=== PATIENT | male | born 1970 | race Two or more races ===

== ENCOUNTER 2017-05-15 10:25 | Outpatient (CLI) | payer OTHER ==
[2017-05-15 10:51] LABS: BASOPHILS # (AUTO) 0.2 K/uL (0.00-0.22); BASOPHILS % (AUTO) 3.1 % (0.0-2.0); EOSINOPHILS # (AUTO) 0.1 K/uL (0-0.4); EOSINOPHILS % (AUTO) 2.7 % (0.0-4.0); HEMATOCRIT 44.2 % (36-52); HEMOGLOBIN 14.6 g/dL (12.0-18.0); LYMPHOCYTES # (AUTO) 1.9 K/uL (2.0-11.5); LYMPHOCYTES % (AUTO) 35.3 % (20.5-51.1); MEAN CORPUSCULAR HEMOGLOBIN 28 pg (27-31); MEAN CORPUSCULAR HGB CONC 33 g/dL (33-37); MEAN CORPUSCULAR VOLUME 85 fL (80-94); MONOCYTES # (AUTO) 0.4 K/uL (0.8-1.0); MONOCYTES % (AUTO) 8.2 % (1.7-9.3); NEUTROPHILS # (AUTO) 2.8 K/uL (1.8-7.7); NEUTROPHILS % (AUTO) 50.7 % (42.2-75.2); PLATELET COUNT (AUTO) 250 K/uL (140-450); RED BLOOD CELL COUNT(AUTO) 5.22 MIL/uL (4.20-6.10); RED CELL DISTRIBUTION WIDTH 11.9 % (11.6-13.7); WHITE BLOOD COUNT (AUTO) 5.4 K/uL (4.8-10.8)
[2017-05-15 11:20] LABS: ALBUMIN 3.9 g/dL (3.4-5.0); CARBON DIOXIDE 30.9 mmol/L (21-32); CHOL/HDL RATIO 3.2 (1-4.5); CREATININE 0.9 mg/dL (0.7-1.3); POTASSIUM 3.9 mmol/L (3.5-5.1); TOTAL BILIRUBIN 0.9 mg/dL (0.0-1.0)
== END 2017-05-15 20:56 | disposition home or self-care (01) ==
LOC: MLB 10:25
PROVIDERS: ATTEND Student in an Organized Health Care Education/Training Program
DX: Z00.00 Encounter for general adult medical examination without abnormal findings (principal)
CPT/HCPCS: 36415; 80053; 85025

== ENCOUNTER 2018-11-23 12:17 | Outpatient (CLI) | payer OTHER ==
[2018-11-23 12:50] LABS: BASOPHILS % (AUTO) 0.7 % (0.0-2.0); EOSINOPHILS # (AUTO) 0.2 K/uL (0-0.4); EOSINOPHILS % (AUTO) 3.6 % (0.0-4.0); HEMOGLOBIN 14.6 g/dL (12.0-18.0); LYMPHOCYTES # (AUTO) 1.9 K/uL (2.0-11.5); LYMPHOCYTES % (AUTO) 36.9 % (20.5-51.1); MEAN CORPUSCULAR HEMOGLOBIN 28 pg (27-31); MEAN CORPUSCULAR HGB CONC 33 g/dL (33-37); MEAN CORPUSCULAR VOLUME 85.5 fL (80-94); MONOCYTES # (AUTO) 0.5 K/uL (0.8-1.0); MONOCYTES % (AUTO) 9.5 % (1.7-9.3); NEUTROPHILS # (AUTO) 2.6 K/uL (1.8-7.7); NEUTROPHILS % (AUTO) 49.3 % (42.2-75.2); PLATELET COUNT (AUTO) 250 K/uL (140-450); RED BLOOD CELL COUNT(AUTO) 5.14 MIL/uL (4.20-6.10); RED CELL DISTRIBUTION WIDTH 13.2 % (11.6-13.7); WHITE BLOOD COUNT (AUTO) 5.2 K/uL (4.8-10.8)
[2018-11-23 13:09] LABS: APPEARANCE,URINE CLEAR (CLEAR); BILIRUBIN,URINE NEGATIVE (NEGATIVE); BLOOD, URINE NEGATIVE (NEGATIVE); COLOR,URINE YELLOW (YELLOW); LEUKOCYTE ESTERASE ,URINE NEGATIVE (NEGATIVE); NITRITE, URINE NEGATIVE (NEGATIVE); PH,URINE 6.5 (5.0-9.0); UGLUCOSE TRACE (NEGATIVE)
[2018-11-23 13:12] LABS: ALBUMIN 4.1 g/dL (3.4-5.0); ANION GAP 11.3 (8-16); CARBON DIOXIDE 28.8 mmol/L (21-32); CHOL/HDL RATIO 3.2 (1-4.5); FREE T4 (FREE THYROXINE) 0.98 ng/dL (0.76-1.46); MAGNESIUM 2.1 mg/dL (1.8-2.4); POTASSIUM 5.1 mmol/L (3.5-5.1); THYROID STIMULATING HORMONE 1.35 uIU/mL (0.34-3.74); TOTAL BILIRUBIN 0.4 mg/dL (0.0-1.0)
== END 2018-11-23 21:12 | disposition home or self-care (01) ==
LOC: MLB 12:17
PROVIDERS: ATTEND Family Medicine
DX: Z00.01 Encounter for general adult medical examination with abnormal findings (principal)
CPT/HCPCS: 36415; 80053; 81003; 82306; 83036; 83735; 84439; 84443; 85025

== ENCOUNTER 2019-03-18 08:39 | Outpatient (CLI) | payer OTHER ==
[2019-03-18 09:05] LABS: BASOPHILS % (AUTO) 0.7 % (0.0-2.0); EOSINOPHILS # (AUTO) 0.3 K/uL (0-0.4); EOSINOPHILS % (AUTO) 4.9 % (0.0-4.0); HEMATOCRIT 44.7 % (36-52); HEMOGLOBIN 14.7 g/dL (12.0-18.0); LYMPHOCYTES # (AUTO) 1.8 K/uL (2.0-11.5); LYMPHOCYTES % (AUTO) 35.2 % (20.5-51.1); MEAN CORPUSCULAR HEMOGLOBIN 29 pg (27-31); MEAN CORPUSCULAR HGB CONC 33 g/dL (33-37); MEAN CORPUSCULAR VOLUME 87.7 fL (80-94); MONOCYTES # (AUTO) 0.5 K/uL (0.8-1.0); MONOCYTES % (AUTO) 9.2 % (1.7-9.3); NEUTROPHILS # (AUTO) 2.6 K/uL (1.8-7.7); PLATELET COUNT (AUTO) 244 K/uL (140-450); RED CELL DISTRIBUTION WIDTH 13.3 % (11.6-13.7); WHITE BLOOD COUNT (AUTO) 5.1 K/uL (4.8-10.8)
[2019-03-18 09:18] LABS: APPEARANCE,URINE CLEAR (CLEAR); BILIRUBIN,URINE NEGATIVE (NEGATIVE); BLOOD, URINE NEGATIVE (NEGATIVE); COLOR,URINE YELLOW (YELLOW); LEUKOCYTE ESTERASE ,URINE NEGATIVE (NEGATIVE); NITRITE, URINE NEGATIVE (NEGATIVE); UGLUCOSE NEGATIVE (NEGATIVE)
[2019-03-18 09:56] LABS: CREATININE 0.8 mg/dL (0.7-1.3); POTASSIUM 4.1 mmol/L (3.5-5.1)
[2019-03-18 10:15] LABS: ANION GAP 10.9 (8-16); CARBON DIOXIDE 31.2 mmol/L (21-32); CHOL/HDL RATIO 3.7 (1-4.5); TOTAL BILIRUBIN 0.5 mg/dL (0.0-1.0)
[2019-03-19 09:08] LABS: T4 FREE (DIRECT) 1.28 ng/dL (0.82-1.77); TRIIODOTHYRONINE 107 ng/dL (71-180); TRIIODOTHYRONINE FREE 3.1 pg/mL (2.0-4.4)
[2019-03-19 12:07] LABS: MICROALBUMIN, UR RANDOM <3.0 ug/mL (Not Estab.)
== END 2019-03-18 19:32 | disposition home or self-care (01) ==
LOC: MLB 08:39
PROVIDERS: ATTEND Family Medicine
DX: E78.2 Mixed hyperlipidemia (principal); E11.9 Type 2 diabetes mellitus without complications; E55.9 Vitamin D deficiency, unspecified
CPT/HCPCS: 36415; 80053; 81003; 82043; 82306; 83036; 84439; 84443; 84480; 84481; 85025

== ENCOUNTER 2019-07-07 20:09 | Emergency (ER) | payer OTHER ==
[~2019-07-07] VITALS: Ht 175.3 cm; Wt 99.3 kg
[2019-07-07 20:24] VITALS: BP 128/73
--- NOTE | 2019-07-07 20:27 | NUR ---
PT AMBULATED TO LOBBY WITH STEADY GAIT
--- NOTE | 2019-07-07 20:45 | NUR ---
INFLUENZA SWAB COLLECTED
--- NOTE | 2019-07-07 20:59 | NUR ---
PT TAKEN TO CHAIR B
--- NOTE | 2019-07-07 21:04 | NUR ---
48 Y/O MALE PRESENTS TO ED, C/O FEVER AND COUGHIN. PT STATES SYMPTOMS STARTED YESTERDAY AND WORSENING TODAY. PT STATES FEVER WAS 101 AT HOME; PT AFEBRILE DURING TRIAGE ASSESSMENT. TOOK TYLENOL 1 HOUR PRIOR COMING TO ED. COUGHING IS PRODUCTIVE WITH SPUTUM, PER PT. NO SOB/DIFFICULTY BREATHING NOTED. LUNG SOUNDS BILAT CLEAR. PT VSS. ERMD AWARE. WILL CONTINUE TO MONITOR.
--- NOTE | 2019-07-07 21:52 | NUR ---
PT MOVED TO BED #7
--- NOTE | 2019-07-07 22:59 | NUR ---
Dr. Sheriff examining patient.
[2019-07-07 23:21] VITALS: BP 131/70
--- NOTE | 2019-07-07 23:21 | NUR ---
PT DISCHARGED WITH PAPERWORK. EDUCATED PT REGARDING MEDICATIONS AND D/C INSTRUCTIONS. PT VERBALIZED UNDERSTANDING WITH TEACHING. TOLD PT TO FOLLOW UP WITH PCP AND WHEN TO RETURN TO ED. PT AT STABLE CONDITION. ALL QUESTIONS ANSWERED
== END 2019-07-07 23:21 | disposition home or self-care (01) ==
LOC: MED 20:09
DX: R50.9 Fever, unspecified (principal); R05 Cough; R06.02 Shortness of breath; R07.89 Other chest pain; R11.0 Nausea
CPT/HCPCS: 71045; 87804; 99284

== ENCOUNTER 2021-10-27 08:31 | Day surgery (SDC) | payer OTHER ==
[~2021-10-27] VITALS: Ht 172.7 cm; Wt 94.3 kg
[2021-10-27] MEDS ORDERED: fentaNYL citrate 0.05 MG/ML VIAL ONE (09:16)
[2021-10-27] MEDS ORDERED: diphenhydrAMINE 50 MG/ML VIAL ONE (09:16)
[2021-10-27] MEDS ORDERED: MIDAZOLAM 5 MG/5 ML VIAL ONE (09:16)
[2021-10-27] MEDS ORDERED: LIDOCAINE 2% 100 MG/5 ML UJET TP ONE (09:17)
== END 2021-10-27 10:50 | disposition home or self-care (01) ==
LOC: MOR 08:31 → MMU 08:32 → MOR 10:50
PROVIDERS: ATTEND Internal Medicine Gastroenterology
DX: Z12.11 Encounter for screening for malignant neoplasm of colon (principal); D12.4 Benign neoplasm of descending colon; K59.00 Constipation, unspecified; Z90.49 Acquired absence of other specified parts of digestive tract; Z79.899 Other long term (current) drug therapy; Z20.822 Contact with and (suspected) exposure to COVID-19
CPT/HCPCS: 45385; 87426; 88305; J1200; J2250; J3010

== ENCOUNTER 2023-09-18 02:50 | Emergency (ER) | payer OTHER ==
[~2023-09-18] VITALS: Ht 172.7 cm; Wt 97.5 kg
[2023-09-18 03:04] VITALS: BP 119/76; PULSE 91; RESP 18; TEMP 98.3; O2SAT 97
[2023-09-18 03:21] LABS: APPEARANCE,URINE CLOUDY (CLEAR); BILIRUBIN,URINE NEGATIVE (NEGATIVE); BLOOD, URINE 3+ (NEGATIVE); COLOR,URINE YELLOW (YELLOW); LEUKOCYTE ESTERASE ,URINE 2+ (NEGATIVE); NITRITE, URINE POSITIVE (NEGATIVE); PROTEIN,URINE 1+ (NEGATIVE); UGLUCOSE NEGATIVE (NEGATIVE); UROBILINOGEN,URINE 0.2 EU/dL (0.2 - 1)
[2023-09-18 03:32] LABS: BACTERIA,URINE >30 (MANY) /HPF (None Seen); MUCUS,URINE 1+ /LPF (None Seen); SQUAMOUS EPITHELIAL CELL,UR 0-3 (FEW) /LPF (0-3 (FEW)); WBC,URINE TOO MANY TO COUNT /HPF (0-5)
[2023-09-18] MEDS ORDERED: cefTRIAXone 1,000 MG VIAL ONE (05:03)
[2023-09-18] MEDS: KETOROLAC 30 MG/ML VIAL IVP ONE (05:28)
[2023-09-18] MEDS: NACL 0.9% 1,000 ML IV ONE (05:28)
[2023-09-18 05:32] LABS: BASOPHILS % (AUTO) 0.1 % (0.0-2.0); EOSINOPHILS % (AUTO) 0.2 % (0.0-4.0); HEMATOCRIT 42.2 % (36-52); HEMOGLOBIN 14.5 g/dL (12.0-18.0); LYMPHOCYTES # (AUTO) 0.5 K/uL (2.0-11.5); LYMPHOCYTES % (AUTO) 3.3 % (20.5-51.1); MEAN CORPUSCULAR HEMOGLOBIN 29 pg (27-31); MEAN CORPUSCULAR HGB CONC 34 g/dL (33-37); MEAN CORPUSCULAR VOLUME 83.7 fL (80-94); MONOCYTES # (AUTO) 0.9 K/uL (0.8-1.0); MONOCYTES % (AUTO) 5.6 % (1.7-9.3); NEUTROPHILS # (AUTO) 14.6 K/uL (1.8-7.7); NEUTROPHILS % (AUTO) 90.8 % (42.2-75.2); PLATELET COUNT (AUTO) 203 K/uL (140-450); RED BLOOD CELL COUNT(AUTO) 5.04 MIL/uL (4.20-6.10); RED CELL DISTRIBUTION WIDTH 13.7 % (11.6-13.7); WHITE BLOOD COUNT (AUTO) 16.1 K/uL (4.8-10.8)
[2023-09-18] MEDS ORDERED: CIPR500T4 PO (05:43)
[2023-09-18 05:44] LABS: ANION GAP 15.2 (8-16); CALCIUM 8.6 mg/dL (8.5-10.1); CARBON DIOXIDE 25.2 mmol/L (21-32); CREATININE 0.8 mg/dL (0.6-1.3); POTASSIUM 3.4 mmol/L (3.5-5.1)
[2023-09-18 05:48] VITALS: BP 119/76; PULSE 91; RESP 18; TEMP 98.3; O2SAT 97
[2023-09-18 05:50] LABS: ALBUMIN 3.5 g/dL (3.4-5.0); BILIRUBIN,DIRECT 0.5 mg/dL (0.0-0.3); TOTAL BILIRUBIN 1.9 mg/dL (0.0-1.0); TOTAL PROTEIN, SERUM 7.2 g/dL (6.4-8.2)
[2023-09-18 05:54] LABS: LACTIC ACID 1.1 mmol/L (0.4-2.0)
== END 2023-09-18 05:48 | disposition home or self-care (01) ==
LOC: MED 02:50
DX: N39.0 Urinary tract infection, site not specified (principal); Z79.899 Other long term (current) drug therapy
CPT/HCPCS: 36415; 71045; 80048; 80076; 81001; 83605; 85025; 87040; 87086; 87186; 96365; 96375; 99284; J0696; J1885; Q0092

== ENCOUNTER 2023-10-02 14:56 | Outpatient (CLI) | payer OTHER ==
[~2023-10-02 14:56] MED LIST: CIPR500T4 PO
[2023-10-02 15:59] LABS: ALBUMIN 3.7 g/dL (3.4-5.0); ANION GAP 11.8 (8-16); CALCIUM 8.6 mg/dL (8.5-10.1); CHOL/HDL RATIO 3.6 (1-4.5); CREATININE 0.9 mg/dL (0.6-1.3); POTASSIUM 3.8 mmol/L (3.5-5.1); THYROID STIMULATING HORMONE 0.66 uIU/mL (0.34-3.74); TOTAL BILIRUBIN 0.6 mg/dL (0.0-1.0); TOTAL PROTEIN, SERUM 7.2 g/dL (6.4-8.2)
[2023-10-02 16:24] LABS: BASOPHILS % (AUTO) 0.9 % (0.0-2.0); EOSINOPHILS # (AUTO) 0.1 K/uL (0-0.4); EOSINOPHILS % (AUTO) 2.8 % (0.0-4.0); HEMATOCRIT 42.8 % (36-52); HEMOGLOBIN 14.5 g/dL (12.0-18.0); LYMPHOCYTES # (AUTO) 1.8 K/uL (2.0-11.5); LYMPHOCYTES % (AUTO) 37.2 % (20.5-51.1); MEAN CORPUSCULAR HEMOGLOBIN 29 pg (27-31); MEAN CORPUSCULAR HGB CONC 34 g/dL (33-37); MONOCYTES # (AUTO) 0.4 K/uL (0.8-1.0); MONOCYTES % (AUTO) 8.7 % (1.7-9.3); NEUTROPHILS # (AUTO) 2.5 K/uL (1.8-7.7); NEUTROPHILS % (AUTO) 50.4 % (42.2-75.2); PLATELET COUNT (AUTO) 292 K/uL (140-450); RED BLOOD CELL COUNT(AUTO) 5.09 MIL/uL (4.20-6.10); RED CELL DISTRIBUTION WIDTH 13.9 % (11.6-13.7); WHITE BLOOD COUNT (AUTO) 4.9 K/uL (4.8-10.8)
[2023-10-02 17:09] LABS: APPEARANCE,URINE CLEAR (CLEAR); BILIRUBIN,URINE NEGATIVE (NEGATIVE); BLOOD, URINE NEGATIVE (NEGATIVE); COLOR,URINE YELLOW (YELLOW); LEUKOCYTE ESTERASE ,URINE NEGATIVE (NEGATIVE); NITRITE, URINE NEGATIVE (NEGATIVE); PROTEIN,URINE NEGATIVE (NEGATIVE); UGLUCOSE NEGATIVE (NEGATIVE); UROBILINOGEN,URINE 0.2 EU/dL (0.2 - 1)
== END 2023-10-02 19:46 | disposition home or self-care (01) ==
LOC: MLB 14:56
PROVIDERS: ATTEND Family Medicine Geriatric Medicine
DX: Z13.29 Encounter for screening for other suspected endocrine disorder (principal); Z13.228 Encounter for screening for other metabolic disorders; Z13.21 Encounter for screening for nutritional disorder; Z12.5 Encounter for screening for malignant neoplasm of prostate; Z13.1 Encounter for screening for diabetes mellitus; Z13.0 Encounter for screening for diseases of the blood and blood-forming organs and certain disorders involving the immune mechanism; Z13.220 Encounter for screening for lipoid disorders; N23 Unspecified renal colic
CPT/HCPCS: 36415; 76770; 80053; 81003; 82306; 83036; 84154; 84439; 84443; 85025

== ENCOUNTER 2024-04-10 09:43 | Outpatient (CLI) | payer OTHER ==
[2024-04-11 08:09] LABS: PROSTATE SPECIFIC AG TOTAL 1.7 ng/mL (0.0-4.0)
[2024-04-11 13:11] LABS: HEMOGLOBIN A1C 5.8 % (4.8-5.6)
== END 2024-04-10 21:54 | disposition home or self-care (01) ==
LOC: MLB 09:43
PROVIDERS: ATTEND Family Medicine Geriatric Medicine
DX: Z13.1 Encounter for screening for diabetes mellitus (principal); R97.20 Elevated prostate specific antigen [PSA]
CPT/HCPCS: 36415; 83036; 84154